=== PATIENT | female | born 1980 | race African-American/Black ===

== ENCOUNTER 2022-06-20 08:00 | Outpatient (NON) | payer BC, SELFPAY | END 2022-06-20 08:01 | disposition home or self-care (01) | PROVIDERS: PCP Nurse Practitioner Family; Visit Provider Nurse Practitioner | DX: L82.1 Other seborrheic keratosis (principal) | CPT/HCPCS: 88305 ==

== ENCOUNTER 2022-08-04 00:51 | Day surgery (SDC) | payer BC, SELFPAY ==
[2022-07-27 08:33] VITALS: BMI 27.0
--- NOTE | 2022-07-27 08:37 | PC.NURSE ---
Report to the Outpatient Waiting Room, entrance under the green pavilion located off [facility], at time 0600 on date 08/04/22. Planned Procedure Time: 0730. Time changes happen often and if your time is changed the preop area will call you the afternoon before. - You and your visitor will be asked to self-screen and do not enter if you have any COVID symptoms. - A mask is optional within the hospital at this time. Patients may have clear liquids (water, carbonated beverages, clear teas, apple juice) until 3 hours prior to surgery with a maximum of 20 ounces. - No food from midnight until time of surgery Take the following medications with a SIP of water the morning of surgery: NONE DO NOT STOP ANY OF YOUR OTHER PRESCRIPTION MEDICATIONS PRIOR TO SURGERY EXCEPT THE FOLLOWING Medications to discontinue per physician: VITAMINS/SUPPLEMENTS Date to take last dose: 07/31/22 Please no make-up, nail moldovan, hairspray, perfume, deodorant, or body powder the day of surgery. No jewelry (including any body piercings) or valuables the day of surgery, leave them at home. Please take a shower or bath the night before, or the morning of, surgery with an antibacterial soap. Wear comfortable, loose fitting clothing. - Jewelry must be removed prior to entering the operating room. Rings and piercings that are not removed may be cut off. - The hospital will not accept responsibility for valuables. - Please leave all valuables, including medications, at home the day of surgery. If you are going home after surgery, a licensed tank wagon driver must drive you home. - NO public transportation without another adult if you receive anesthesia. - We recommend that an adult stay with you for 24 hours following discharge. - We also recommend that you do not drive, make important decision, drink alcoholic beverages, or take any drugs that were not prescribed by your health care provider for at least 24 hours after your discharge time. Follow any additional instructions given to you from your surgeon. If you or anyone in your household have experienced Covid symptoms in the past week, please notify your surgeon or the nurse liaison at the phone number below for possible testing. Telephone instructions given to PT - VEE MARTIN and asked if any additional questions and then verbalized understanding. Patient advised to call surgeon office or pre surgery nurse liaison [phone] if any additional questions.
--- NOTE | 2022-08-03 11:36 | P.PNAN_ITS ---
Anes - Initial Pre Proc Eval Procedure: Operation Date: 08/04/22 07:30 Proposed Procedures p Excision Mass Left Forehead - Brenton Holguin MD Date/Time: 08/03/22 11:36 Surgeon: Brenton Holguin MD Pre Op Diagnosis: 2 cm Mass Left Forehead Patient Data Age: 42 Gender: F Height: 1.66 m Weight: 74.85 kg Allergies Allergy/AdvReac Type Severity Reaction Status Date / Time No Known Allergies Allergy Verified 07/27/22 08:31 Home Medications Medication Instructions Recorded Confirmed Type Lactobacillus 1 cap PO DAILY 07/27/22 07/27/22 History acidophilus-Bifidobac.animalis 2.5 billion cell capsule (Daily Probiotic) cyanocobalamin (vitamin B-12) 1,000 mcg subcut MONTHLY 07/27/22 07/27/22 History 1,000 mcg/mL injection solution lisinopril 10 mg tablet 10 mg PO DAILY 07/27/22 07/27/22 History loratadine 10 mg tablet (Claritin) 10 mg PO DAILY 07/27/22 07/27/22 History multivitamin 1 tablet PO DAILY 07/27/22 07/27/22 History Patient hx anesthesia problems: none Family hx anesthesia problems: none Results Review: All pre-operative results and documents have been reviewed as part of the pre- operative evaluation. [facility] Past Medical History Medical History (Updated 08/03/22 @ 11:37 by Jerzy Pickens MD) HTN (hypertension) Overweight (BMI 25.0-29.9) Social History Social History Smoking status: Never smoker Alcohol intake: current Drinks per week: 2 Substance use: never Substance use type: does not use Living arrangements: alone Spiritual care concerns: No Anes - Eval Final PreProcedure Day of Procedure 08/03/22 11:36 Patient weight: overweight Heart: regular rate and rhythm Lungs: clear to auscultation and normal air movement Airway: Mallampati scale class II Neurological: alert and oriented Last oral intake: >/= 8 hours ASA classification: II Emergent: no Anesthetic plan: proceed Anesthesia type and monitoring: general GIVS Results Review: All pre-operative results and documents have been reviewed as part of the pre- operative evaluation. Informed Consent: The patient's anesthetic plan and its attendant risks and benefits were discussed with the patient/family/POA. Questions were solicited and answers provided to the satisfaction of the patient/family/POA.
[2022-08-04] VITALS (7 sets, daily range): BP systolic 131–151; BP diastolic 93–105; PULSE 60–84; RESP 12–20; TEMP 36.2–36.3; O2SAT 98–100; BMI 25.7
[2022-08-04] MEDS: LACTATED RINGERS 1,000 ML 30 ML IV CONT (06:35)
--- NOTE | 2022-08-04 07:14 | WPDHPUPDATE1 ---
History and Physical Update Update Date/Time: 08/04/22 07:14 History and Physical has been reviewed, including an updated exam of the patient. There are NO changes in the patient's condition. Risks, benefits, and alternatives have been discussed and questions answered. Patient agrees to proceed with procedure.
--- NOTE | 2022-08-04 07:15 | WPDHPUPDATE1 ---
History and Physical Update Update Date/Time: 08/04/22 07:15 History and Physical has been reviewed, including an updated exam of the patient. There are NO changes in the patient's condition. Risks, benefits, and alternatives have been discussed and questions answered. Patient agrees to proceed with procedure.
--- NOTE | 2022-08-04 07:19 | P.OP_ITS ---
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 I want her to be very realistic about the risks involved as well as expectations. She has previously had some numbness of her scalp and she understands this is a risk. Also difficulty with elevation her brow which could be permanent if these nerves are injured. All questions were answered to her satisfaction today. She voiced a clear understanding. Consent obtained She was marked in the preoperative holding area with her verification. Taken to the operating room placed supine on the operating room table. Anesthesia provided by anesthesiology. Prepped and draped in a standard sterile fashion. Surgical time-out was taken. 1% lidocaine and 0.25% Marcaine with epinephrine was used anesthetize locally. A 15 blade used to excise the previous scar. I split the muscle without cutting it in order to gain access. Dissection was continued down until just deep to the frontalis muscle a lipoma was identified and removed 1cm. Deep to this there was some degree of frontal bone hypertrophy versus osteoma. This was completely removed with osteotome and smooth contour was verified. Copious irrigated with saline solution. I repaired the muscle with a 4-0 Monocryl. At her request we used absorbable sutures as she may have difficulty having the sutures removed. Closed skin with 4-0 Monocryl and 5 0 plain gut. She tolerated well. Estimated Blood Loss 5 Drains No Packing No Pathology Yes (Forehead subcutaneous mass) Complications No immediate complications Condition Stable Disposition PACU
[2022-08-04] MEDS: ceFAZolin 2 GM/D5W 50 ML 2 GM/50 ML BAG IVPB (07:25)
[2022-08-04] MEDS: LIDO 1%/EPINEPHRINE 1:100,000 20 ML VIAL 4 ML INFILTRATE (07:41)
[2022-08-04] MEDS: HYDROmorphone HCL INJ (*CRX) 1 MG/ML SYR 0.25 MG IV PUSH ×2 (08:33→08:39)
[2022-08-04] MEDS: ONDANSETRON HCL ODT 4 MG TABLET PO (09:40)
== END 2022-08-04 09:53 | disposition home or self-care (01) ==
PROVIDERS: PCP Nurse Practitioner Family; Visit Provider Surgery Plastic and Reconstructive Surgery
PROC: (CPT 21011; principal; 2022-08-04 07:30)
DX: D17.0 Benign lipomatous neoplasm of skin and subcutaneous tissue of head, face and neck (principal); I10 Essential (primary) hypertension
CPT/HCPCS: 21011; 88304; A9270; J0690; J1170; J2250; J3010; J7120